=== PATIENT | male | born 1950 | race Caucasian/White ===

== ENCOUNTER 2016-07-27 22:09 | Emergency (ER) | payer MEDICARE, MEDICAID ==
[2016-07-28] MEDS ORDERED: PREDNISONE 20 MG TABLET PO ONE (00:48)
[2016-07-28] MEDS ORDERED: IPRATROPIUM/ALBUTEROL 0.5-2.5 MG/3 ML AMPUL NEB ONE (00:48)
--- NOTE | 2016-07-28 00:52 | ER Document Report ---
ED Respiratory Problem - General Chief Complaint: Chest Congestion Stated Complaint: COUGH Time seen by provider: 00:51 Mode of Arrival: Ambulatory Information source: Patient TRAVEL OUTSIDE OF THE [place] IN LAST 30 DAYS: No - HPI Patient complains to provider of: Cough, Short of breath Onset: This morning Duration: Worse/persistent Quality of pain: No pain Context: Hx COPD, Malignancy Short of Breath: Moderate Chest pain/discomfort: Tightness Cough: Productive Sputum amount: Small Sputum color: Yellow Sputum consistency: Mucoid At home treatment: Inhaled steroids Associated symptoms: Congestion, Cough, Short of breath Similar symptoms previously: Yes Recently seen / treated by doctor: No Notes: Patient is a 65-year-old male previous smoker with history of lung cancer, lung resection and COPD, who presents to the emergency room complaining of cough, cold and congestion that started earlier today, reports he is coughing up yellowish phlegm, denies any fever, positive sick contacts, not currently taking antibiotics or oral steroids - Related Data Allergies/Adverse Reactions: No Known Allergies Allergy (Verified 07/27/15 10:34) Past Medical History - General Information source: Patient - Social History Smoking Status: Former Smoker Family History: Reviewed & Not Pertinent Patient has suicidal ideation: No Patient has homicidal ideation: No - Past Medical History Cardiac Medical History: Reports: Hx Hypertension Denies: Hx Coronary Artery Disease, Hx Heart Attack Pulmonary Medical History: Reports: Hx Bronchitis, Hx COPD, Hx Pneumonia Denies: Hx Asthma Neurological Medical History: Denies: Hx Cerebrovascular Accident, Hx Seizures Renal/ Medical History: Denies: Hx Peritoneal Dialysis Malignancy Medical History: Reports Hx Lung Cancer, Reports Hx Prostate Cancer Musculoskeltal Medical History: Reports Hx Arthritis Past Surgical History: Denies: Hx Pacemaker - Immunizations Hx Diphtheria, Pertussis, Tetanus Vaccination: Yes Hx Pneumococcal Vaccination: 07/06/12 Review of Systems - Review of Systems Constitutional: No symptoms reported EENT: No symptoms reported Cardiovascular: No symptoms reported Respiratory: See HPI Gastrointestinal: No symptoms reported Genitourinary: No symptoms reported Male Genitourinary: No symptoms reported Musculoskeletal: No symptoms reported Skin: No symptoms reported Hematologic/Lymphatic: No symptoms reported Neurological/Psychological: No symptoms reported -: Yes All other systems reviewed and negative Physical Exam - Vital signs Vitals: Temp Pulse Resp BP Pulse Ox 97.5 F 68 18 116/65 98 07/27/16 22:34 07/27/16 22:34 07/27/16 22:34 07/27/16 22:34 07/27/16 22:34 Interpretation: Normal - General General appearance: Appears well, Alert - HEENT Head: Normocephalic, Atraumatic Eyes: Normal Pupils: PERRL - Respiratory Respiratory status: No respiratory distress Chest status: Nontender Breath sounds: Nonproductive cough, Rhonchi, Wheezing Chest palpation: Normal - Cardiovascular Rhythm: Regular Heart sounds: Normal auscultation Murmur: No - Abdominal Inspection: Normal Distension: No distension Bowel sounds: Normal Tenderness: Nontender Organomegaly: No organomegaly - Back Back: Normal, Nontender - Extremities General upper extremity: Normal inspection, Nontender, Normal color, Normal ROM , Normal temperature General lower extremity: Normal inspection, Nontender, Normal color, Normal ROM , Normal temperature, Normal weight bearing. No: Raúl's sign - Neurological Neuro grossly intact: Yes Cognition: Normal Orientation: AAOx4 Ricardo Coma Scale Eye Opening: Spontaneous Ricardo Coma Scale Verbal: Oriented [place] Coma Scale Motor: Obeys Commands Ricardo Coma Scale Total: 15 Speech: Normal Motor strength normal: LUE, RUE, LLE, RLE Sensory: Normal - Psychological Associated symptoms: Normal affect, Normal mood - Skin Skin Temperature: Warm Skin Moisture: Dry Skin Color: Normal Course - Re-evaluation Re-evalutation: 07/28/16 02:05 Patient reports feeling much better after breathing treatment, lungs are clear to auscultation, imaging findings were discussed with patient at bedside, symptoms consistent with acute bronchitis, given patient's history of being a former smoker and having lung cancer with resection and will place him on a short course of antibiotics, advise follow-up with a primary care provider or return if symptoms worsen, patient acknowledges understanding and agreement with this plan - Vital Signs Vital signs: Temp Pulse Resp BP Pulse Ox 97.5 F 68 18 116/65 98 07/27/16 22:34 07/27/16 22:34 07/27/16 22:34 07/27/16 22:34 07/27/16 22:34 - Diagnostic Test Radiology reviewed: Image reviewed, Reports reviewed Discharge - Discharge Clinical Impression: COPD exacerbation Acute bronchitis Qualifiers: Bronchitis organism: unspecified organism Qualified Code(s): J20.9 - Acute bronchitis, unspecified Condition: Stable Disposition: HOME, SELF-CARE Instructions: Chronic Obstructive Lung Disease ([facility]), Bronchitis ([facility]) Additional Instructions: Follow up with your primary care provider in one to 2 days. Return to the emergency room immediately if symptoms worsen or any additional concerns. Prescriptions: Azithromycin [Zithromax 250 mg Tablet] 250 mg PO ASDIR PRN #4 tablet PRN Reason: Prednisone 40 mg PO DAILY #8 tablet
[2016-07-28] MEDS ORDERED: AZITHROMYCIN 250 MG TABLET PO ONE (02:05)
[2016-07-28 02:26] VITALS: BP 125/71
== END 2016-07-28 02:25 | disposition home or self-care (01) ==
LOC: ER 22:09
DX: J44.0 Chronic obstructive pulmonary disease with (acute) lower respiratory infection (principal); J20.9 Acute bronchitis, unspecified; J44.1 Chronic obstructive pulmonary disease with (acute) exacerbation; R05 Cough; R06.02 Shortness of breath; I10 Essential (primary) hypertension; Z87.891 Personal history of nicotine dependence; Z85.118 Personal history of other malignant neoplasm of bronchus and lung; Z90.2 Acquired absence of lung [part of]; Z87.01 Personal history of pneumonia (recurrent)
CPT/HCPCS: 94640; 99283; 71020; A9270 ×3; J7512; J7620

== ENCOUNTER → 2016-10-20 | Outpatient (CLI) | payer MEDICARE, MEDICAID | LOC: WI 09:17 | PROVIDERS: ATTEND Internal Medicine Medical Oncology | DX: M81.0 Age-related osteoporosis without current pathological fracture (principal) | CPT/HCPCS: 77080 ==

== ENCOUNTER 2017-08-20 06:30 | Emergency (ER) | payer MEDICARE, MEDICAID ==
[2017-08-20] MEDS ORDERED: TETRACAINE HCL 0.5% OPH SOLN 2 ML OD ONE (06:41)
[2017-08-20] MEDS ORDERED: LORAZEPAM 0.5 MG TABLET PO ONE (06:48)
[2017-08-20] MEDS ORDERED: HYDROCODONE/ACETAMINOPHEN 5-325 MG TABLET PO ONE (06:48)
[2017-08-20] MEDS ORDERED: HYDROCODONE/ACETAMINOPHEN 5-325 MG (6 TAB/ER DISP) PO PRN (07:33)
[2017-08-20] MEDS ORDERED: POLYMYXIN B SULFATE/TMP OPH SOLN (10 ML/ER DISP) OD PRN (07:33)
--- NOTE | 2017-08-20 07:39 | ER Document Report ---
ED General - General Chief Complaint: Foreign Body in Eye Stated Complaint: EYE INJURY Time Seen by Provider: 08/20/17 06:41 TRAVEL OUTSIDE OF THE [place] IN LAST 30 DAYS: No - HPI Patient complains to provider of: Right eye foreign body Notes: Patient coming in for a possibility of a right eye foreign body. 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 Patient denies any visual disturbances. 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 Otherwise denies any contact use denies any other past medical history. Denies fevers chills nausea vomiting diarrhea. Resting company upon my evaluation. - Related Data Allergies/Adverse Reactions: No Known Allergies Allergy (Verified 07/27/15 10:34) Past Medical History - Social History Smoking Status: Current Every Day Smoker Family History: Reviewed & Not Pertinent Patient has suicidal ideation: No Patient has homicidal ideation: No - Past Medical History Cardiac Medical History: Reports: Hx Hypertension Denies: Hx Coronary Artery Disease, Hx Heart Attack Pulmonary Medical History: Reports: Hx Bronchitis, Hx COPD, Hx Pneumonia Denies: Hx Asthma Neurological Medical History: Denies: Hx Cerebrovascular Accident, Hx Seizures Renal/ Medical History: Denies: Hx Peritoneal Dialysis Malignancy Medical History: Reports Hx Lung Cancer, Reports Hx Prostate Cancer Musculoskeltal Medical History: Reports Hx Arthritis Past Surgical History: Denies: Hx Pacemaker - Immunizations Hx Diphtheria, Pertussis, Tetanus Vaccination: Yes Hx Pneumococcal Vaccination: 07/06/12 Review of Systems - Review of Systems Constitutional: No symptoms reported EENT: Other - Right eye injury Cardiovascular: No symptoms reported Respiratory: No symptoms reported Gastrointestinal: No symptoms reported Genitourinary: No symptoms reported Male Genitourinary: No symptoms reported Musculoskeletal: No symptoms reported Skin: No symptoms reported Hematologic/Lymphatic: No symptoms reported Neurological/Psychological: No symptoms reported -: Yes All other systems reviewed and negative Physical Exam - Vital signs Vitals: Temp Pulse Resp BP Pulse Ox 98 F 69 18 165/92 H 100 08/20/17 06:31 08/20/17 06:31 08/20/17 06:31 08/20/17 06:31 08/20/17 06:31 Interpretation: Normal - General General appearance: Appears well, Alert - HEENT Head: Normocephalic, Atraumatic Eyes: Normal Conjunctiva: Injected Cornea: Embedded foreign body Extraocular movements intact: Yes Eyelashes: Normal Pupils: PERRL Pharynx: Normal Neck: Normal - Respiratory Respiratory status: No respiratory distress Chest status: Nontender Breath sounds: Normal Chest palpation: Normal - Cardiovascular Rhythm: Regular Heart sounds: Normal auscultation Murmur: No - Abdominal Inspection: Normal Distension: No distension Bowel sounds: Normal Tenderness: Nontender Organomegaly: No organomegaly - Back Back: Normal, Nontender - Extremities General upper extremity: Normal inspection, Nontender, Normal color, Normal ROM , Normal temperature General lower extremity: Normal inspection, Nontender, Normal color, Normal ROM , Normal temperature, Normal weight bearing. No: Raúl's sign - Neurological Neuro grossly intact: Yes Cognition: Normal Orientation: AAOx4 [place] Coma Scale Eye Opening: Spontaneous Ricardo Coma Scale Verbal: Oriented [place] Coma Scale Motor: Obeys Commands Ricardo Coma Scale Total: 15 Speech: Normal Motor strength normal: LUE, RUE, LLE, RLE Sensory: Normal - Psychological Associated symptoms: Normal affect, Normal mood - Skin Skin Temperature: Warm Skin Moisture: Dry Skin Color: Normal Course - Re-evaluation Re-evalutation: 08/20/17 10:06 Patient with a foreign body in the right eye. This was confirmed with forcing staining and examination under the microscope. Patient was given a dose of tetracaine along with Ativan and Garrison. At which time using a 18-gauge needle I was able to remove the foreign body. The right eye was reexamined no Siedel sign no signs of any other foreign body. Patient had the remaining corneal abrasion. Patient was started on Polytrim. Patient was encouraged to follow- up with ophthalmology or optometry or return to ER symptoms worsen. Visual acuity otherwise normal. Patient discharged home. - Vital Signs Vital signs: Temp Pulse Resp BP Pulse Ox 97.6 F 64 18 149/86 H 98 08/20/17 07:46 08/20/17 07:46 08/20/17 07:46 08/20/17 07:46 08/20/17 07:46 Procedures - Eye Procedure Right Notes: 08/20/17 10:08 Foreign body at the 5 o'clock position of the iris. Patient was given a dose of tetracaine along with Ativan and Garrison. At which time using a 18-gauge needle I was able to remove the foreign body. The right eye was reexamined no Siedel sign no signs of any other foreign body. Discharge - Discharge Clinical Impression: Foreign body of right eye Qualifiers: Encounter type: initial encounter Qualified Code(s): T15.91XA - Foreign body on external eye, part unspecified, right eye, initial encounter Disposition: HOME, SELF-CARE Instructions: Corneal Abrasion ([facility]) Additional Instructions: Please use antibiotic drops as prescribed. 2 drops in your right eye every 4 hours for the next 7 days. If you experience eye pain please return to the ER immediately. He may take Tylenol Motrin for pain control he may also take the Garrison given to you here in the ER for severe pain. 1 tablet every [address] for [address] not drive with this medication. I would recommend following up with an eye doctor either an health program analyst or the electronic imager given to you. I recommend wearing sunglasses while outside is that this will cause her eyes to tear. 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 Referrals: OSIEL PEREZ, DO [ACTIVE STAFF] - Follow up as needed
[2017-08-20 07:49] VITALS: BP 149/86
== END 2017-08-20 07:47 | disposition home or self-care (01) ==
LOC: ER 06:30
DX: T15.81XA Foreign body in other and multiple parts of external eye, right eye, initial encounter (principal); X58.XXXA Exposure to other specified factors, initial encounter; I10 Essential (primary) hypertension; J44.9 Chronic obstructive pulmonary disease, unspecified; F17.200 Nicotine dependence, unspecified, uncomplicated; Z85.118 Personal history of other malignant neoplasm of bronchus and lung; Z85.46 Personal history of malignant neoplasm of prostate
CPT/HCPCS: 99283; J3490; A9270 ×3

== ENCOUNTER 2017-12-24 16:54 | Emergency (ER) | payer MEDICARE, MEDICAID ==
[2017-12-24 17:25] VITALS: BP 172/104
[2017-12-24 17:36] LABS: ALANINE AMINOTRANSFERASE 23 U/L (21-72); ALBUMIN 3.7 g/dL (3.5-5.0); ALKALINE PHOSPHATASE 95 U/L (38-126); ANION GAP 9 (5-19); ASPARTATE AMINO TRANSFERASE 17 U/L (17-59); BILIRUBIN,DIRECT 0.3 mg/dL (0.0-0.4); BILIRUBIN,TOTAL 0.4 mg/dL (0.2-1.3); BLOOD UREA NITROGEN 24 mg/dL (7-20); CALCIUM 9.6 mg/dL (8.4-10.2); CARBON DIOXIDE 28 mmol/L (22-30); CHLORIDE 105 mmol/L (98-107); GLUCOSE 94 mg/dL (75-110); POTASSIUM 4.6 mmol/L (3.6-5.0); SODIUM 141.9 mmol/L (137-145); TOTAL PROTEIN 6.5 g/dL (6.3-8.2)
[2017-12-24] MEDS ORDERED: OXYCODONE-ACETAMINOPHEN 5-325 MG TABLET PO ONE (17:40)
[2017-12-24] MEDS ORDERED: ONDANSETRON HCL INJ/PF 4 MG/2 ML SDV IV ONE (17:40)
[2017-12-24] MEDS ORDERED: ONDANSETRON 4 MG TAB.RAPDIS PO ONE (17:44)
[2017-12-24 17:50] LABS: HEMATOCRIT 41.5 % (37.9-51.0); HEMOGLOBIN 13.9 g/dL (13.5-17.0); MEAN CORPUSCULAR HEMOGLOBIN 29.5 pg (27.0-33.4); MEAN CORPUSCULAR HGB CONC 33.6 g/dL (32.0-36.0); MEAN CORPUSCULAR VOLUME 88 fl (80-97); PLATELET COUNT 247 10^3/uL (150-450); RED BLOOD COUNT 4.73 10^6/uL (4.35-5.55); RED CELL DISTRIBUTION WIDTH 13.9 % (11.5-14.0); WHITE BLOOD COUNT 11.4 10^3/uL (4.0-10.5)
--- NOTE | 2017-12-24 17:53 | ER Document Report ---
ED Headache - General Chief Complaint: Headache Stated Complaint: HEADACHE Time Seen by Provider: 12/24/17 17:38 Notes: Patient says he been having a severe headache since yesterday or the day before. 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 His headache started slightly then and worsened yesterday. It is located primarily in the frontal region, to the right of center. Patient has had headaches before, but never had a headache this bad is nauseated but has not vomited. No diarrhea. Has pain in the right abdomen for 2 days. Patient has not been sick recently and has not had any fevers. Feels dizzy and tired. Went to a local medical office and they called EMS who transported the patient here. Patient stopped smoking about 10 years ago. Does not drink alcohol. Does use methamphetamine once or twice a week, the most recently was yesterday. Patient has high blood pressure and GERD and has had prostate cancer and lung cancer. Says he sometimes forgets to take his medications. Takes Zoloft for depression. Appendectomy. Lobectomy on the left lung. TRAVEL OUTSIDE OF THE [place] IN LAST 30 DAYS: No - Related Data Allergies/Adverse Reactions: No Known Allergies Allergy (Verified 07/27/15 10:34) Past Medical History - Social History Smoking Status: Former Smoker Chew tobacco use (# tins/day): No Frequency of alcohol use: None Drug Abuse: Methamphetamine - Once or twice a week. Family History: Reviewed & Not Pertinent Patient has suicidal ideation: No Patient has homicidal ideation: No - Past Medical History Cardiac Medical History: Reports: Hx Hypertension Pulmonary Medical History: Reports: Hx Bronchitis, Hx COPD, Hx Pneumonia Denies: Hx Asthma Malignancy Medical History: Reports Hx Lung Cancer, Reports Hx Prostate Cancer Musculoskeltal Medical History: Reports Hx Arthritis Psychiatric Medical History: Reports: Hx Depression Past Surgical History: Reports: Hx Appendectomy - Immunizations Hx Diphtheria, Pertussis, Tetanus Vaccination: Yes Hx Pneumococcal Vaccination: 07/06/12 Review of Systems - Review of Systems Notes: REVIEW OF SYSTEMS: CONSTITUTIONAL : Denies fever. EENT: Denies eye, ear, nose or mouth or throat pain or other symptoms. CARDIOVASCULAR: Denies chest pain. RESPIRATORY: Denies cough, chest congestion, or shortness of breath. GASTROINTESTINAL: Says he has pain to the right side of the abdomen, not at McBurney's point. (History appendectomy). Nauseated but has not vomited. No diarrhea. GENITOURINARY: Denies difficulty or painful urinating, urinary frequency, blood in urine. MUSCULOSKELETAL: Denies back or neck pain. Denies joint pain or swelling. SKIN: Denies rash or skin lesions. NEUROLOGICAL: Denies LOC or altered mental status. See HPI regarding headache. Denies sensory loss or motor deficits. ALL OTHER SYSTEMS REVIEWED AND NEGATIVE. Physical Exam - Vital signs Vitals: Resp Pulse Ox 17 96 12/24/17 17:04 12/24/17 17:04 Interpretation: Normal, Hypertensive - Mild - Notes Notes: PHYSICAL EXAMINATION: GENERAL: Well-appearing, appears to be in pain. HEAD: Atraumatic, normocephalic. EYES: Pupils equal round and reactive to light, extraocular movements intact. ENT: oropharynx clear without exudates. Moist mucous membranes. NECK: Normal range of motion, supple. No nuchal rigidity. LUNGS: Breath sounds clear and equal bilaterally. HEART: Regular rate and rhythm without murmurs. ABDOMEN: Soft, nontender. No guarding or rebound. No masses. No specific tenderness in the right side of the abdomen. BACK: No tenderness throughout entire back. EXTREMITIES: Normal range of motion without pain. NEUROLOGICAL: Normal speech, normal gait. Normal sensory, motor, and reflex exams. Awake, alert, and oriented x3. PSYCH: Normal mood, normal affect. SKIN: Warm, dry, no rashes. Course - Re-evaluation Re-evalutation: 12/24/17 18:38 Patient's workup is essentially normal. Drug screen positive for amphetamines. CT scan essentially normal. Patient's neck is supple. Neurologically intact. Plan to discharge him home with something for nausea and something for his headache (Ultram). 12/24/17 18:50 Further discussion with the patient: He says that this batch of methamphetamine did not taste right. He is not sure what they may have put in it, but he was having his headache before he use the methamphetamine. Patient has no fever, his white count is 11,400, but only 50% neutrophils and no bands. He does not have any stiffness to the neck and moves his head around frequently and vigorously. Nothing about the patient's examination or findings in his workup suggests the need for a lumbar puncture, in my opinion, at this time. - Vital Signs Vital signs: Temp Pulse Resp BP Pulse Ox 97.7 F 14 172/104 H 96 12/24/17 17:23 12/24/17 17:07 12/24/17 17:07 12/24/17 17:07 - Laboratory Result Diagrams: 12/24/17 17:09 12/24/17 17:09 Laboratory results interpreted by me: 12/24/17 12/24/17 12/24/17 17:09 17:09 17:15 WBC 11.4 H Eosinophils % (Manual) 24 H Absolute Eos (Manual) 2.7 H BUN 24 H Urine Urobilinogen 2.0 H Discharge - Discharge Clinical Impression: Headache, Methamphetamine abuse, Hypertension Condition: Stable Disposition: HOME, SELF-CARE Additional Instructions: HEADACHE: The physician does not feel that the headache you are experiencing has a serious underlying cause. Most headaches are due to emotional stress, with resultant muscle tension (tension headache). Occasionally, headaches are secondary to changes in the blood vessels of the scalp (vascular headache and migraine headache). Sometimes, a headache is the first symptom of another developing illness, such as a viral infection. You have no evidence of stroke, bleeding, meningitis, or other serious cause of your headache. The treatment of headaches varies with the severity and cause of the pain. Not all headaches need pain shots. In fact, there is evidence that using narcotics for headaches may make them worse in the long run. The physician will determine the therapy that's in your best interest. If you develop a fever, if the headache is different from any you've previously experienced, or if the headache progressively worsens, then call your physician at once or go to the emergency room. NORMAL EXAM AND WORKUP: At this time, your examination and workup show no significant abnormality. No significant abnormal physical findings were noted. All laboratory, EKG, and imaging (x-ray, CT scans, ultrasound) studies that were ordered show no significant abnormality. Although your examination and all studies that were ordered showed no significant abnormal finding, there are no examinations and no studies that are 100% accurate. There is always the possibility that some abnormality could exist and not be detected with physical examination or within the limits and capabilities of laboratory and other studies. You should return or follow up as you were instructed on your visit today for further evaluation if your symptoms do not resolve. AMPHETAMINE / METHAMPHETAMINE ABUSE: Amphetamines are addicting stimulants. Amphetamines overstimulate the nervous system and give a false feeling of power and mastery. These drugs may be obtained as prescription pills for weight loss, narcolepsy, or attention- deficit disorder. More often they're bought as an illegal street drug, methamphetamine (crank, crystal, speed). Using amphetamines repeatedly can lead to serious medical problems including malnutrition, severe depression, and paranoia. It can take increasing amounts to feel good. Eventually, there will be a "burn out." When you go off amphetamines there is a period of depression that may last for weeks or even months. High doses of amphetamines can cause seizures, confusion, hallucinations, delusions, high blood pressure, muscle damage, heart damage, or sudden . Many times these deadly complications occur even with "normal" doses. Injection of amphetamines is risky for developing abscesses, endocarditis ( heart infection), pneumonia, and AIDS. Withdrawal from amphetamines often causes anxiety, depression, and drug cravings. Some users become paranoid and psychotic. There may be cramps, nausea , and vomiting. Many treatment programs are available, but you must make the decision to quit. Medication can be prescribed to control the symptoms of amphetamine toxicity (beta blockers or benzodiazepines). Withdrawal symptoms may require tranquilizers. ANTINAUSEA MEDICATION: You have been given a medication to suppress nausea and vomiting. This type of medication can be given as a shot, pill, or suppository. It will usually last for many hours. Pills and shots usually last six to eight hours, suppositories last about 12 hours. For the typical illness, only one or two doses of the medication may be necessary. Mild lightheadedness may occur. This type of medicine can cause drowsiness. Do not drive or operate dangerous machinery while under its influence. Do not mix with alcohol. See your doctor at once if you have muscle spasms or tightness, or uncontrollable motions (particularly of the neck, mouth, or jaw). Persistent vomiting or severe lightheadedness should also be evaluated by the physician. Ultram Ultram is an excellent drug for pain relief. It is not a narcotic, but it works in a similar way. Ultram can take up to two hours for full effect. Although not addicting, Ultram is best avoided in patients with a history of drug abuse. Ultram should not be used with alcohol, sleeping pills, or narcotics. If you're prone to seizures, Ultram can make you more likely to have a seizure. Ultram can be hazardous when combined with MAO-inhibitor antidepressants (such as Nardil or Parnate). Be sure your doctor is aware of all medicines you are taking. Persons with severe liver or kidney disease should increase the time between doses of Ultram. Discuss this with your doctor if you're uncertain. Side effects of Ultram can include dizziness, nausea, constipation, sleepiness, and itching. (These side effects are also seen with narcotic pain medicines.) Please call your doctor if you have other disturbing effects. FOLLOW-UP CARE: If you have been referred to a physician for follow-up care, call the physician s office for an appointment as you were instructed or within the next two days. If you experience worsening or a significant change in your symptoms, notify the physician immediately or return to the Emergency Department at any time for re-evaluation. Return for reevaluation if you develop new or worsening symptoms. Take your blood pressure medications as prescribed. Avoid using amphetamines and in particular methamphetamine. Prescriptions: Ondansetron [Zofran Odt 4 mg Tablet] 1 - 2 tab PO Q4H PRN #8 tab.rapdis PRN Reason: For Nausea/Vomiting Tramadol HCl [Ultram 50 mg Tablet] 50 mg PO ASDIR PRN #10 tablet PRN Reason:
[2017-12-24 17:54] LABS: APPEARANCE,URINE CLEAR; BILIRUBIN,URINE NEGATIVE (NEGATIVE); COLOR,URINE YELLOW; GLUCOSE, URINE NEGATIVE (NEGATIVE); KETONES,URINE NEGATIVE (NEGATIVE); LEUKOCYTE ESTERASE,URINE NEGATIVE (NEGATIVE); NITRITE,URINE NEGATIVE (NEGATIVE); PROTEIN,URINE NEGATIVE (NEGATIVE); URINE SPECIFIC GRAVITY 1.027
[2017-12-24 18:12] LABS: URINE BARBITURATES SCREEN NEGATIVE; URINE BENZODIAZEPINES SCREEN NEGATIVE; URINE COCAINE SCREEN NEGATIVE; URINE MARIJUANA (THC) SCREEN NEGATIVE; URINE METHADONE SCREEN NEGATIVE; URINE PHENCYCLIDINE SCREEN NEGATIVE
[2017-12-24 18:18] LABS: ABSOLUTE LYMPHOCYTES# (MANUAL) 2.3 10^3/uL (0.5-4.7); ABSOLUTE MONOCYTES # (MANUAL) 0.6 10^3/uL (0.1-1.4); ABSOLUTE NEUTROPHILS# (MANUAL) 5.7 10^3/uL (1.7-8.2); BASOPHILS % (MANUAL) 1 % (0-2); EOSINOPHILS % (MANUAL) 24 % (0-6); LYMPHOCYTES % (MANUAL) 20 % (13-45); MONOCYTES % (MANUAL) 5 % (3-13); SEGMENTED NEUTROPHILS % (MAN) 50 % (42-78); TOTAL CELLS COUNTED 100
--- NOTE | 2017-12-24 18:18 | RADIOLOGY REPORT (SQ) ---
EXAM DESCRIPTION: CT HEAD WITHOUT COMPLETED DATE/TIME: 12/24/2017 6:02 pm REASON FOR STUDY: Headache COMPARISON: 08/31/2007 TECHNIQUE: Axial images acquired through the brain without intravenous contrast. Images reviewed wi th bone, brain and subdural windows. Additional sagittal and coronal reconstructions were generated. Images stored on PACS. All CT scanners at this facility use dose modulation, iterative reconstruction, and/or weight based d osing when appropriate to reduce radiation dose to as low as reasonably achievable (ALARA). [facility]: Dose Right [facility]: CareDose [facility]: Dose Right [facility]: Teradose 4D [facility]: Smart Raise5 RADIATION DOSE: CT Rad equipment meets quality standard of care and radiation dose reduction techniq ues were employed. CTDIvol: 48.6 mGy. DLP: 953 mGy-cm. mGy. LIMITATIONS: None. FINDINGS: VENTRICLES: Normal size and contour. CEREBRUM: No masses. No hemorrhage. No midline shift. No evidence for acute infarction. Small area s of low density in the white matter most likely chronic small vessel ischemic changes. CEREBELLUM: No masses. No hemorrhage. No alteration of density. No evidence for acute infarction. EXTRAAXIAL SPACES: No fluid collections. No masses. ORBITS AND GLOBE: No intra- or extraconal masses. Normal contour of globe without masses. CALVARIUM: No fracture. PARANASAL SINUSES: No fluid or mucosal thickening. SOFT TISSUES: No mass or hematoma. OTHER: No other significant finding. IMPRESSION: MILD CHRONIC MICROVASCULAR ISCHEMIA. NO ACUTE IMAGING FINDINGS IN THE BRAIN. EVIDENCE OF ACUTE STROKE: NO. COMMENT: Quality ID # [id number]: Final reports with documentation of one or more dose reduction techniques (e.g., Automated exposure control, adjustment of the mA and/or kV according to patient size, use of iterative reconstruction technique) TECHNICAL DOCUMENTATION: JOB ID: [id number] [employer]- All Rights Reserved Reading location - IP/workstation name: [email or web address]
[2017-12-24 18:19] LABS: PLATELET COMMENT ADEQUATE
[2017-12-24 18:20] LABS: POLYCHROMASIA SLIGHT
--- NOTE | 2017-12-26 09:57 | EKG REPORT ---
SEVERITY:- ABNORMAL ECG - SINUS RHYTHM LVH WITH SECONDARY REPOLARIZATION ABNORMALITY : Confirmed by: Nahum Lopez 26-Dec-2017 09:57:07
== END 2017-12-24 19:21 | disposition home or self-care (01) ==
LOC: ER 16:54
DX: R51 Headache (principal); F15.10 Other stimulant abuse, uncomplicated; I10 Essential (primary) hypertension; R11.0 Nausea; R10.9 Unspecified abdominal pain; R42 Dizziness and giddiness; R53.83 Other fatigue; Z87.891 Personal history of nicotine dependence; Z79.899 Other long term (current) drug therapy; K21.9 Gastro-esophageal reflux disease without esophagitis; J44.9 Chronic obstructive pulmonary disease, unspecified; Z85.46 Personal history of malignant neoplasm of prostate; Z85.118 Personal history of other malignant neoplasm of bronchus and lung
CPT/HCPCS: 93005; 99285; 36415; 80307 ×2; 85025; 80053; 81001; 70450; 93010; A9270 ×2; S0119

== ENCOUNTER 2018-02-05 10:43 | Emergency (ER) | payer MEDICARE, MEDICAID ==
[2018-02-05] MEDS ORDERED: FENTANYL CITRATE INJ/PF 100 MCG/2 ML AMPUL IV ONE (11:00)
[2018-02-05] MEDS ORDERED: ONDANSETRON HCL INJ/PF 4 MG/2 ML SDV IV ONE (11:00)
--- NOTE | 2018-02-05 11:02 | ER Document Report ---
ED Medical Screen (RME) - General Chief Complaint: Flank Pain Stated Complaint: FLANK PAIN Time Seen by Provider: 02/05/18 10:57 Notes: 67-year-old male history of kidney stones complaining of right flank pain and right lower quadrant pain. States it started about 3 days ago. Pain is getting worse. Nothing seems to make it better or worse. Positive for vomiting as well as nausea. I have greeted and performed a rapid initial assessment of this patient. A comprehensive ED assessment and evaluation of the patient, analysis of test results and completion of the medical decision making process will be conducted by additional ED providers. TRAVEL OUTSIDE OF THE [place] IN LAST 30 DAYS: No - Related Data Allergies/Adverse Reactions: No Known Allergies Allergy (Verified 02/05/18 10:46) Past Medical History - Past Medical History Cardiac Medical History: Reports: Hx Hypertension Denies: Hx Coronary Artery Disease, Hx Heart Attack Pulmonary Medical History: Reports: Hx Bronchitis, Hx COPD, Hx Pneumonia Denies: Hx Asthma Neurological Medical History: Denies: Hx Cerebrovascular Accident, Hx Seizures Renal/ Medical History: Denies: Hx Peritoneal Dialysis Malignancy Medical History: Reports Hx Lung Cancer, Reports Hx Prostate Cancer Musculoskeltal Medical History: Reports Hx Arthritis Psychiatric Medical History: Reports: Hx Depression Past Surgical History: Reports: Hx Appendectomy. Denies: Hx Pacemaker - Immunizations Hx Diphtheria, Pertussis, Tetanus Vaccination: Yes Review of Systems - Review of Systems Notes: Review of systems are positive for: Right flank pain, nausea, vomiting, right lower quadrant abdominal pain. Denies any chest pain or shortness of breath at this time. Physical Exam - Vital signs Vitals: Temp Pulse Resp BP Pulse Ox 97.6 F 58 L 18 184/80 H 96 02/05/18 10:51 02/05/18 10:51 02/05/18 10:51 02/05/18 10:51 02/05/18 10:51 Interpretation: Normal - General General appearance: Alert In distress: Moderate - Abdominal Inspection: Normal Distension: No distension Bowel sounds: Normal Tenderness: Tender - The right lower quadrant. Organomegaly: No organomegaly - Back Back: Normal, CVA tenderness Course - Vital Signs Vital signs: Temp Pulse Resp BP Pulse Ox 97.6 F 58 L 18 184/80 H 96 02/05/18 10:51 02/05/18 10:51 02/05/18 10:51 02/05/18 10:51 02/05/18 10:51 Doctor's Discharge - Discharge Referrals: MARIAA IGNACIO PA-C [Primary Care Provider] - Follow up as needed
[2018-02-05 11:58] LABS: ABSOLUTE EOSINOPHILS # (AUTO) 1.9 10^3/uL (0.0-0.6); ABSOLUTE LYMPHOCYTES (AUTO) 1.6 10^3/uL (0.5-4.7); ABSOLUTE MONOCYTES (AUTO) 0.5 10^3/uL (0.1-1.4); BASOPHILS % (AUTO) 0.4 % (0-2); EOSINOPHILS % (AUTO) 18.9 % (0-6); HEMATOCRIT 40.1 % (37.9-51.0); HEMOGLOBIN 13.5 g/dL (13.5-17.0); LYMPHOCYTES % (AUTO) 15.7 % (13-45); MEAN CORPUSCULAR HEMOGLOBIN 29.4 pg (27.0-33.4); MEAN CORPUSCULAR HGB CONC 33.7 g/dL (32.0-36.0); MEAN CORPUSCULAR VOLUME 87 fl (80-97); PLATELET COUNT 222 10^3/uL (150-450); RED CELL DISTRIBUTION WIDTH 14.1 % (11.5-14.0); TOTAL CELLS COUNTED % (AUTO) 100 %
[2018-02-05 12:21] LABS: ALANINE AMINOTRANSFERASE 25 U/L (21-72); ALBUMIN 3.9 g/dL (3.5-5.0); ALKALINE PHOSPHATASE 102 U/L (38-126); ANION GAP 15 (5-19); ASPARTATE AMINO TRANSFERASE 25 U/L (17-59); BILIRUBIN,DIRECT 0.2 mg/dL (0.0-0.4); BILIRUBIN,TOTAL 0.5 mg/dL (0.2-1.3); BLOOD UREA NITROGEN 18 mg/dL (7-20); CALCIUM 9.6 mg/dL (8.4-10.2); CARBON DIOXIDE 24 mmol/L (22-30); CHLORIDE 103 mmol/L (98-107); GLUCOSE 120 mg/dL (75-110); POTASSIUM 4.2 mmol/L (3.6-5.0); SODIUM 141.6 mmol/L (137-145); TOTAL PROTEIN 6.9 g/dL (6.3-8.2)
[2018-02-05] MEDS ORDERED: KETOROLAC TROMETHAMINE INJ/PF 30 MG/1 ML SDV IV ONE (12:46)
--- NOTE | 2018-02-05 12:49 | RADIOLOGY REPORT (SQ) ---
EXAM DESCRIPTION: CT ABD/PELVIS NO ORAL OR IV COMPLETED DATE/TIME: 02/05/2018 12:13 pm REASON FOR STUDY: right flank pain COMPARISON: None. TECHNIQUE: CT scan of the abdomen and pelvis performed without intravenous or oral contrast. Images reviewed with lung, soft tissue, and bone windows. Reconstructed coronal and sagittal MPR images revi ewed. All images stored on PACS. All CT scanners at this facility use dose modulation, iterative reconstruction, and/or weight based d osing when appropriate to reduce radiation dose to as low as reasonably achievable (ALARA). [facility]: Dose Right [facility]: CareDose [facility]: Dose Right [facility]: Teradose 4D [facility]: Smart Quantitative Medicine RADIATION DOSE: CT Rad equipment meets quality standard of care and radiation dose reduction techniq ues were employed. CTDIvol: 5.3 mGy. DLP: 270 mGy-cm.mGy. LIMITATIONS: None. FINDINGS: LOWER CHEST: No significant findings. No nodules or infiltrates. NON-CONTRASTED LIVER, SPLEEN, ADRENALS: Evaluation limited by lack of IV contrast. No identified sign ificant masses. PANCREAS: No masses. No peripancreatic inflammatory changes. GALLBLADDER: No identified stones by CT criteria. No inflammatory changes to suggest cholecystitis. RIGHT KIDNEY AND URETER: Mild right hydronephrosis. Intrarenal calculus. 2 mm calculus at the right UVJ. LEFT KIDNEY AND URETER: No suspicious masses. Assessment limited by lack of IV contrast. No signifi cant calcifications. No hydronephrosis or hydroureter. AORTA AND RETROPERITONEUM: No aneurysm. No retroperitoneal masses or adenopathy. BOWEL AND PERITONEAL CAVITY: No obvious bowel masses. There is mild mesenteric edema. APPENDIX: Surgically absent. PELVIS, BLADDER, AND ABDOMINAL WALL:No abnormal masses. No free fluid. Bladder normal. BONES: No significant findings. OTHER: No other significant finding. IMPRESSION: 1. Mild right hydronephrosis secondary to 2 mm UVJ calculus. 2. Mild mesenteric edema. COMMENT: Quality ID # [id number]: Final reports with documentation of one or more dose reduction techniques (e.g., Automated exposure control, adjustment of the mA and/or kV according to patient size, use of iterative reconstruction technique) TECHNICAL DOCUMENTATION: JOB ID: [id number] [employer]- All Rights Reserved Reading location - IP/workstation name: [email or web address]
[2018-02-05] MEDS ORDERED: METOCLOPRAMIDE HCL INJ/PF 10 MG/2 ML SDV IV ONE (13:08)
[2018-02-05] MEDS ORDERED: MORPHINE SULFATE 10 MG/ML INJ IV ONE (13:08)
--- NOTE | 2018-02-05 13:11 | ER Document Report ---
ED General - General Chief Complaint: Flank Pain Stated Complaint: FLANK PAIN Time Seen by Provider: 02/05/18 10:57 TRAVEL OUTSIDE OF THE [place] IN LAST 30 DAYS: No - HPI Notes: Patient is a 67-year-old male with a history of hypertension, COPD, previous kidney stones who presents to the ED complaining of right flank pain 3 days that radiates down into his groin. He has had n/v associated with this pain. His pain is intermittent and comes in waves. Patient states that this mimics previous kidney stone pain. Patient states that he is eating and drinking without any difficulties patient has noticed some blood in his urine. He is having normal bowel movements. He has tried [id number]-[id number] meds with minimal relief. He has not had any other recent illness. No other concerns or complaints. Denies any injury. Denies any headache, fever, URI, sore throat, chest pain, palpitations, syncope, cough, shortness of breath, wheeze, dyspnea, diarrhea, urinary retention, dysuria, loss of control of bowel or bladder, numbness/tingling, saddle anesthesia, muscle paralysis/weakness, or rash. - Related Data Allergies/Adverse Reactions: No Known Allergies Allergy (Verified 02/05/18 10:46) Past Medical History - Social History Smoking Status: Former Smoker Chew tobacco use (# tins/day): No Drug Abuse: Methamphetamine Family History: Reviewed & Not Pertinent Patient has suicidal ideation: No Patient has homicidal ideation: No - Past Medical History Cardiac Medical History: Reports: Hx Hypertension Denies: Hx Coronary Artery Disease, Hx Heart Attack Pulmonary Medical History: Reports: Hx Bronchitis, Hx COPD, Hx Pneumonia Denies: Hx Asthma Neurological Medical History: Denies: Hx Cerebrovascular Accident, Hx Seizures Renal/ Medical History: Denies: Hx Peritoneal Dialysis Malignancy Medical History: Reports Hx Lung Cancer, Reports Hx Prostate Cancer Musculoskeletal Medical History: Reports Hx Arthritis Psychiatric Medical History: Reports: Hx Depression Past Surgical History: Reports: Hx Appendectomy. Denies: Hx Pacemaker - Immunizations Hx Diphtheria, Pertussis, Tetanus Vaccination: Yes Hx Pneumococcal Vaccination: 07/06/12 Review of Systems - Review of Systems -: Yes All other systems reviewed and negative Physical Exam - Vital signs Vitals: Temp Pulse Resp BP Pulse Ox 97.6 F 58 L 18 184/80 H 96 02/05/18 10:51 02/05/18 10:51 02/05/18 10:51 02/05/18 10:51 02/05/18 10:51 - Notes Notes: PHYSICAL EXAMINATION: GENERAL: Well-appearing, well-nourished and in no acute distress. Chest: + reproducible tenderness to palpation of the rt pectoral area and reproducible with arm extension/abduction. LUNGS: Breath sounds clear to auscultation bilaterally and equal. No wheezes rales or rhonchi. HEART: Regular rate and rhythm without murmurs, rubs, gallops. ABDOMEN: Soft, nondistended abdomen. No guarding, no rebound. No masses appreciated. Normal bowel sounds present. + rt CVA tenderness. + mild generalized tenderness with focus on the rt flank. Musculoskeletal: FROM to passive/active. Strength 5+/5. Back: FROM. Strength 5+/5. Non-tender to midline. Extremities: No cyanosis, clubbing, or edema b/l. Peripheral pulses 2+. Capillary refill less than 3 seconds. NEUROLOGICAL: Normal speech, normal gait. PSYCH: Normal mood, normal affect. SKIN: Warm, Dry, normal turgor, no rashes or lesions noted. Course - Re-evaluation Re-evalutation: 02/05/18 15:15 Patient is an afebrile, well-hydrated, 67-year-old male who presents to the ED with a 2 mm right ureteral stone. Vitals are acceptable without any significant tachycardia, tachypnea, or hypoxia. PE is otherwise unremarkable. CBC, CMP unremarkable for acute pathology, but does show CKD which she has had in the past. UA unremarkable without signs of infection. See CT scan result. Patient is tolerating p.o. without difficulties and is nontoxic-appearing. He has received nausea medication as well as pain medication in the ED. He also received fluids. No other labs or imaging warranted at this time based on H&P. Low suspicion/risk for urosepsis, acute appendicitis, bowel obstruction, acute cholecystitis, perforated diverticulitis, incarcerated hernia, pancreatitis, perforated ulcer, peritonitis, sepsis, testicular torsion, or other systemic emergent condition at this time. Patient is aware that his condition can change from initial presentation and he needs to monitor symptoms closely and seek medical attention if any acute changes. Rx for zofran and morphine IR. He is already on flomax. Conservative measures otherwise for symptoms. Recheck with PCM in 2-3 days. Consider consult with a Urologist. Return to the ED with any worsening/concerning symptoms otherwise as reviewed in discharge. Patient is in agreement. - Vital Signs Vital signs: Temp Pulse Resp BP Pulse Ox 97.2 F 55 L 16 172/68 H 100 02/05/18 13:06 02/05/18 13:06 02/05/18 13:06 02/05/18 13:06 02/05/18 13:06 - Laboratory Result Diagrams: 02/05/18 11:10 02/05/18 11:10 Laboratory results interpreted by me: 02/05/18 02/05/18 11:10 11:10 RDW 14.1 H Eosinophils % 18.9 H Absolute Eosinophils 1.9 H Creatinine 1.46 H Est GFR ( Amer) 58 L Est GFR (Non-Af Amer) 48 L Glucose 120 H Discharge - Discharge Clinical Impression: Right ureteral stone, Right flank pain Condition: Stable Disposition: HOME, SELF-CARE Instructions: Antinausea Medication ([facility]), Kidney Stone ([facility]), Oral Narcotic Medication ([facility]) Additional Instructions: Push fluids (i.e. water, cranberry juice) Proper hygenic technique Keep the skin clean Tylenol/ibuprofen as needed Take medications as directed F/u with your PCM in 2-3 days for a recheck Consider consult with a Urologist for ongoing/worsening symptoms. Return to the ED with any worsening symptoms and/or development of fever, headache, chest pain, palpitations, syncope, shortness of breath, trouble breathing, abdominal pain, n/v/d, blood in stool/urine, loss of control of bowel /bladder, urinary retention, or other worsening symptoms that are concerning to you. Prescriptions: Morphine Sulfate [Morphine Ir 15 Mg Tablet] 15 mg PO TID #15 tablet Ondansetron [Zofran Odt 4 mg Tablet] 1 - 2 tab PO Q4H PRN #15 tab.rapdis PRN Reason: For Nausea/Vomiting Forms: Elevated Blood Pressure Referrals: MARIAA IGNACIO PA-C [Primary Care Provider] - 02/08/18 JOSE OBANDO [NO LOCAL MD] - Follow up as needed
[2018-02-05] MEDS ORDERED: NORMAL SALINE 1000 ML 1,000 ML IV ONE ×2 (13:13→13:15)
[2018-02-05 14:41] LABS: APPEARANCE,URINE CLEAR; BILIRUBIN,URINE NEGATIVE (NEGATIVE); COLOR,URINE YELLOW; GLUCOSE, URINE NEGATIVE (NEGATIVE); KETONES,URINE NEGATIVE (NEGATIVE); LEUKOCYTE ESTERASE,URINE NEGATIVE (NEGATIVE); NITRITE,URINE NEGATIVE (NEGATIVE); PROTEIN,URINE NEGATIVE (NEGATIVE); URINE SPECIFIC GRAVITY 1.023; UROBILINOGEN,URINE NEGATIVE mg/dL (<2.0)
[2018-02-05 15:29] VITALS: BP 160/80
== END 2018-02-05 15:30 | disposition home or self-care (01) ==
LOC: ER 10:43
DX: N20.1 Calculus of ureter (principal); R10.9 Unspecified abdominal pain; I10 Essential (primary) hypertension; J44.9 Chronic obstructive pulmonary disease, unspecified; Z87.442 Personal history of urinary calculi
CPT/HCPCS: 99284; 96361; 96374; 96375; 36415; 85025; 80053; 81001; 74176; J3010; J1885; J2765; J2270; J2405; J7030

== ENCOUNTER 2018-06-02 12:30 | Emergency (ER) | payer MEDICARE, MEDICAID ==
--- NOTE | 2018-06-02 13:16 | ER Document Report ---
ED Medical Screen (RME) - General Chief Complaint: Abnormal Lab Results Stated Complaint: ABNORMAL LABS Time Seen by Provider: 06/02/18 13:12 Notes: 67 years old male with a history of lung cancer was referred here because of elevated white blood cell count at the primary care physician office. Patient denies any symptoms As a history of lung cancer with lung resection TRAVEL OUTSIDE OF THE [place] IN LAST 30 DAYS: No - Related Data Allergies/Adverse Reactions: No Known Allergies Allergy (Verified 06/02/18 12:33) Past Medical History - Past Medical History Cardiac Medical History: Reports: Hx Hypertension Denies: Hx Coronary Artery Disease, Hx Heart Attack Pulmonary Medical History: Reports: Hx Bronchitis, Hx COPD, Hx Pneumonia Denies: Hx Asthma Neurological Medical History: Denies: Hx Cerebrovascular Accident, Hx Seizures Renal/ Medical History: Denies: Hx Peritoneal Dialysis Malignancy Medical History: Reports Hx Lung Cancer, Reports Hx Prostate Cancer Musculoskeltal Medical History: Reports Hx Arthritis Psychiatric Medical History: Reports: Hx Depression Past Surgical History: Reports: Hx Appendectomy. Denies: Hx Pacemaker - Immunizations Hx Diphtheria, Pertussis, Tetanus Vaccination: Yes Physical Exam - Vital signs Vitals: Temp Pulse Resp BP Pulse Ox 97.5 F 72 14 185/99 H 96 06/02/18 12:46 06/02/18 12:46 06/02/18 12:46 06/02/18 12:46 06/02/18 12:46 Course - Vital Signs Vital signs: Temp Pulse Resp BP Pulse Ox 97.5 F 72 14 185/99 H 96 06/02/18 12:46 06/02/18 12:46 06/02/18 12:46 06/02/18 12:46 06/02/18 12:46 Doctor's Discharge - Discharge Referrals: MARIAA IGNACIO PA-C [Primary Care Provider] - Follow up as needed
--- NOTE | 2018-06-02 14:05 | RADIOLOGY REPORT (SQ) ---
EXAM DESCRIPTION: CHEST 2 VIEWS COMPLETED DATE/TIME: 06/02/2018 1:50 pm REASON FOR STUDY: Lung cancer COMPARISON: 07/28/2016 EXAM PARAMETERS: NUMBER OF VIEWS: two views TECHNIQUE: Digital Frontal and Lateral radiographic views of the chest acquired. RADIATION DOSE: NA LIMITATIONS: none FINDINGS: LUNGS AND PLEURA: Stable slight linear subsegmental parenchymal densities at the left renato g base may represent atelectasis or scarring. Interval resolution of the small left pleural effusion . Slight blunting of the right costophrenic angle, stable may represent pleural reaction versus very sm all pleural effusion. No pneumothorax or pleural effusion. MEDIASTINUM AND HILAR STRUCTURES: No masses or contour abnormalities. HEART AND VASCULAR STRUCTURES: Heart normal size. No evidence for failure. BONES: No acute findings. HARDWARE: None in the chest. OTHER: No other significant finding. IMPRESSION: 1. Interval resolution of the small left pleural effusion since the prior examination d ated 07/28/2016. 2. Otherwise, stable appearance to the chest. No acute findings. TECHNICAL DOCUMENTATION: JOB ID: [id number] [employer]- All Rights Reserved Reading location - IP/workstation name: [email or web address]
[2018-06-02 14:17] LABS: ABSOLUTE EOSINOPHILS # (AUTO) 1.1 10^3/uL (0.0-0.6); ABSOLUTE LYMPHOCYTES (AUTO) 1.6 10^3/uL (0.5-4.7); ABSOLUTE MONOCYTES (AUTO) 0.5 10^3/uL (0.1-1.4); ABSOLUTE NEUT (AUTO) 5.1 10^3/uL (1.7-8.2); BASOPHILS % (AUTO) 0.4 % (0-2); HEMATOCRIT 42.3 % (37.9-51.0); HEMOGLOBIN 14.4 g/dL (13.5-17.0); MEAN CORPUSCULAR HEMOGLOBIN 29.7 pg (27.0-33.4); MEAN CORPUSCULAR HGB CONC 34.1 g/dL (32.0-36.0); MEAN CORPUSCULAR VOLUME 87 fl (80-97); MONOCYTES % (AUTO) 6.3 % (3-13); PLATELET COUNT 208 10^3/uL (150-450); RED BLOOD COUNT 4.86 10^6/uL (4.35-5.55); RED CELL DISTRIBUTION WIDTH 14.9 % (11.5-14.0); SEGMENTED NEUTROPHILS % (AUTO) 61.3 % (42-78); TOTAL CELLS COUNTED % (AUTO) 100 %; WHITE BLOOD COUNT 8.4 10^3/uL (4.0-10.5)
--- NOTE | 2018-06-02 14:22 | ER Document Report ---
ED General - General Chief Complaint: Abnormal Lab Results Stated Complaint: ABNORMAL LABS Time Seen by Provider: 06/02/18 13:12 TRAVEL OUTSIDE OF THE [place] IN LAST 30 DAYS: No - HPI Notes: Patient presents from primary care physician's office for complaint of leukocytosis. Patient states that he has a history of prostate cancer and lung cancer which are both in remission. He is not currently receiving chemotherapy or radiation. He has been having constipation for the last 7 days and arranged an appointment with his primary care provider. He states yesterday he had routine blood work performed and today he saw his PCP. During his appointment he was told he had a WBC count that was 3 times higher than normal and was told to come to the emergency room. He denies any other symptoms other than the constipation. He denies any nausea, vomiting, fevers, chills, abdominal pain, shortness of breath and chest pain. He has not had any antibiotics or diarrhea. He is not currently on any steroids. Past medical history: lung cancer, prostate cancer Past surgical history: Reviewed in chart Social history: Tobacco use. Denies drugs and alcohol - Related Data Allergies/Adverse Reactions: No Known Allergies Allergy (Verified 06/02/18 12:33) Past Medical History - Social History Smoking Status: Former Smoker Chew tobacco use (# tins/day): No Frequency of alcohol use: None Drug Abuse: Cocaine Family History: Reviewed & Not Pertinent Patient has suicidal ideation: No Patient has homicidal ideation: No - Past Medical History Cardiac Medical History: Reports: Hx Hypertension Denies: Hx Coronary Artery Disease, Hx Heart Attack Pulmonary Medical History: Reports: Hx Bronchitis, Hx COPD, Hx Pneumonia Denies: Hx Asthma Neurological Medical History: Denies: Hx Cerebrovascular Accident, Hx Seizures Renal/ Medical History: Denies: Hx Peritoneal Dialysis Malignancy Medical History: Reports Hx Lung Cancer, Reports Hx Prostate Cancer Musculoskeletal Medical History: Reports Hx Arthritis Psychiatric Medical History: Reports: Hx Depression Past Surgical History: Reports: Hx Appendectomy. Denies: Hx Pacemaker - Immunizations Hx Diphtheria, Pertussis, Tetanus Vaccination: Yes Hx Pneumococcal Vaccination: 07/06/12 Review of Systems - Review of Systems Constitutional: Other - fatigue EENT: No symptoms reported Cardiovascular: No symptoms reported Respiratory: No symptoms reported Gastrointestinal: Constipation Genitourinary: No symptoms reported Male Genitourinary: No symptoms reported Musculoskeletal: No symptoms reported Skin: No symptoms reported Hematologic/Lymphatic: No symptoms reported Neurological/Psychological: No symptoms reported Physical Exam - Vital signs Vitals: Temp Pulse Resp BP Pulse Ox 97.5 F 72 14 185/99 H 96 06/02/18 12:46 06/02/18 12:46 06/02/18 12:46 06/02/18 12:46 06/02/18 12:46 - General General appearance: Appears well, Alert - HEENT Head: Normocephalic, Atraumatic - Respiratory Respiratory status: No respiratory distress Chest status: Nontender Breath sounds: Normal - Cardiovascular Rhythm: Regular Heart sounds: Normal auscultation Murmur: No - Abdominal Inspection: Normal Distension: No distension Bowel sounds: Normal Tenderness: Nontender - Extremities General upper extremity: Normal inspection - no edema, normal ROM - Neurological Neuro grossly intact: Yes Cognition: Normal Orientation: AAOx4 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 nursing notes reviewed. 06/02/18 14:55 patient given magnesium citrate for his constipation. labwork today shows no leukocytosis. He was encouraged to contact his PCP for close followup. The PCP has not contacted me and patient is not sure what their name is for me to be able to contact them. Patient is currently feeling well and denies symptoms. Discharged home in stable condition. Laboratory 06/02/18 06/02/18 14:07 14:07 WBC 8.4 RBC 4.86 Hgb 14.4 Hct 42.3 MCV 87 MCH 29.7 MCHC 34.1 RDW 14.9 H Plt Count 208 Seg Neutrophils % 61.3 Lymphocytes % 19.0 Monocytes % 6.3 Eosinophils % 13.0 H Basophils % 0.4 Absolute Neutrophils 5.1 Absolute Lymphocytes 1.6 Absolute Monocytes 0.5 Absolute Eosinophils 1.1 H Absolute Basophils 0.0 Sodium 141.7 Potassium 4.8 Chloride 103 Carbon Dioxide 29 Anion Gap 10 BUN 26 H Creatinine 0.95 Est GFR ( Amer) > 60 Est GFR (Non-Af Amer) > 60 Glucose 80 Calcium 9.5 Total Bilirubin 0.4 Direct Bilirubin 0.2 Neonat Total Bilirubin Not Reportable Neonat Direct Bilirubin Not Reportable Neonat Indirect Bili Not Reportable AST 20 ALT 18 L Alkaline Phosphatase 82 Total Protein 6.7 Albumin 3.7 Chest X-Ray 06/02/18 13:15 IMPRESSION: 1. Interval resolution of the small left pleural effusion since the prior examination dated 07/28/2016. 2. Otherwise, stable appearance to the chest. No acute findings. - Vital Signs Vital signs: Temp Pulse Resp BP Pulse Ox 97.5 F 72 14 185/99 H 96 06/02/18 12:46 06/02/18 12:46 06/02/18 12:46 06/02/18 12:46 06/02/18 12:46 - Laboratory Result Diagrams: 06/02/18 14:07 06/02/18 14:07 Laboratory results interpreted by me: 06/02/18 06/02/18 14:07 14:07 RDW 14.9 H Eosinophils % 13.0 H Absolute Eosinophils 1.1 H BUN 26 H ALT 18 L Discharge - Discharge Clinical Impression: Constipation Qualifiers: Constipation type: other constipation type Qualified Code(s): K59.09 - Other constipation Condition: Stable Disposition: HOME, SELF-CARE Instructions: Constipation ([facility]) Referrals: MARIAA IGNACIO PA-C [Primary Care Provider] - Follow up in 3-5 days
[2018-06-02] MEDS ORDERED: MAGNESIUM CITRATE 296 ML BOTTLE PO ONE (14:27)
[2018-06-02 14:44] LABS: ALANINE AMINOTRANSFERASE 18 U/L (21-72); ALBUMIN 3.7 g/dL (3.5-5.0); ALKALINE PHOSPHATASE 82 U/L (38-126); ANION GAP 10 (5-19); ASPARTATE AMINO TRANSFERASE 20 U/L (17-59); BILIRUBIN,DIRECT 0.2 mg/dL (0.0-0.4); BILIRUBIN,TOTAL 0.4 mg/dL (0.2-1.3); BLOOD UREA NITROGEN 26 mg/dL (7-20); CALCIUM 9.5 mg/dL (8.4-10.2); CARBON DIOXIDE 29 mmol/L (22-30); CHLORIDE 103 mmol/L (98-107); GLUCOSE 80 mg/dL (75-110); POTASSIUM 4.8 mmol/L (3.6-5.0); SODIUM 141.7 mmol/L (137-145); TOTAL PROTEIN 6.7 g/dL (6.3-8.2)
[2018-06-02 15:26] VITALS: BP 185/97
== END 2018-06-02 15:37 | disposition home or self-care (01) ==
LOC: ER 12:30
DX: K59.00 Constipation, unspecified (principal); F14.10 Cocaine abuse, uncomplicated; R53.83 Other fatigue; I10 Essential (primary) hypertension; J44.9 Chronic obstructive pulmonary disease, unspecified; Z85.46 Personal history of malignant neoplasm of prostate; Z85.118 Personal history of other malignant neoplasm of bronchus and lung; Z87.891 Personal history of nicotine dependence
CPT/HCPCS: 99283; 36415; 85025; 80053; 71046; J3490

== ENCOUNTER → 2019-03-21 | Outpatient (CLI) | payer MEDICARE, MEDICAID ==
--- NOTE | 2019-03-21 19:00 | XCELERA REPORT ---
[address] [address] Transthoracic Echocardiogram Report Name: MUNDO MAYORGA Age: 68 yrs Gender: Male : 1950 Patient Status: Outpatient Patient Location: [facility] Study Date: 03/21/2019 11:27 AM Height: 66 in Weight: 150 lb BSA: 1.8 m2 Reason For Study: CHRONIC OBSTRUCIVE PULMONARY DISEASE Ordering Physician: JACINTA RICHARDS Performed By: Eduardo Evans Interpretation Summary Mild pulm hypertension RVSP 34, RAP 3mm Hg. RV borderline enlarged with normal RV function and normal RA, normal IVC. No LVH, LVEF biplane 43% mild systolic dysfunction, with LV diastolic dysfunction stage I. Regional wall motion abnormality conisists of hypokinesis of the anterior wall,and the IVS. Mild LV enlargement.(LVESD 41mm). Nonstenotic calcific aortic valvular disease, with no AR. Mild mitral annular calcification with no MS, and mild MR with mild LA enlargement (M-Mode 43mm). MMode/2D Measurements & Calculations RVDd: 3.7 cm LVIDd: 5.7 cm FS: 25.8 % Ao root diam: IVSd: 0.81 cm LVIDs: 4.2 cm EDV(Teich): 3.0 cm LVPWd: 0.83 cm 156.8 ml Ao root area: ESV(Teich): 78.3 ml 7.2 cm2 LA dimension: EF(Teich): 50.1 % 4.2 cm LVLd ap4: 8.8 cm SV(MOD-sp4): EDV(MOD-sp4): 55.0 ml 121.0 ml LVLs ap4: 7.7 cm ESV(MOD-sp4): 66.0 ml EF(MOD-sp4): 45.5 % Doppler Measurements & Calculations MV E max mg: MV P1/2t max mg: Ao V2 max: LV V1 max P.1 cm/sec 71.7 cm/sec 136.4 cm/sec 2.8 mmHg MV A max mg: MV P1/2t: 64.5 msec Ao max PG: LV V1 max: 102.2 cm/sec MVA(P1/2t): 3.4 cm2 7.4 mmHg 82.9 cm/sec MV E/A: 0.65 MV dec slope: 325.5 cm/sec2 MV dec time: 0.21 sec PA V2 max: PI end-d mg: TR max mg: MV P1/2t-pr_phl: 96.7 cm/sec 126.2 cm/sec 300.0 cm/sec 64.5 msec PA max P.7 mmHg TR max P.0 mmHg Left Ventricle The left ventricle is normal in size, thickness and function. There is normal left ventricular wall thickness. LV EF is 43%. Doppler measurements suggest impaired left ventricular relaxation, which is associated with grade I/IV or mild diastolic dysfunction. There is septal wall moderate hypokinesis. There is anterior wall moderate hypokinesis. There is no thrombus. Right Ventricle The right ventricle is borderline dilated. The right ventricular systolic function is normal. Atria The right atrium is normal in size. The left atrial size is normal. The interatrial septum is intact with no evidence for an atrial septal defect. Mitral Valve The mitral valve leaflets are sclerotic and show some degree of functional abnormality. The mitral valve leaflets appear thickened, but open well. There is no evidence of mitral valve prolapse. There is no vegetation seen on the mitral valve. There is no mitral valve stenosis. There is a mild amount of mitral regurgitation. Aortic Valve The aortic valve is trileaflet. The aortic valve opens well. There is no aortic valvular vegetation. There is no aortic valve stenosis. No aortic regurgitation is present. Tricuspid Valve The tricuspid valve is not well visualized, but is grossly normal. There is no tricuspid valve prolapse. There is no tricuspid stenosis. There is a mild amount of tricuspid regurgitation. RSVP is equal to 34. Pulmonic Valve The pulmonic valve is not well visualized. There is a trace or physiologic amount of pulmonic regurgitation. Great Vessels The aortic root is normal size. There is aortic root sclerosis/calcification. Effusions There is no pericardial effusion. I WMSI = 1.50 % Normal = 50 Segments Size X - Cannot 2 - 4 - 1-2 small Interpret 1 - Normal Hypokinetic 3 - AkineticDyskinetic 3-5 moderate 5 - 6-14 large Aneurysmal 15-16 diffuse : JACINTA RICHARDS Andre
== END ==
LOC: SP 11:10
PROVIDERS: ATTEND Registered Nurse
DX: J44.9 Chronic obstructive pulmonary disease, unspecified (principal); R06.00 Dyspnea, unspecified
CPT/HCPCS: 93306

== ENCOUNTER 2019-07-20 11:19 | Emergency (ER) | payer MEDICARE, MEDICAID ==
[2019-07-20] MEDS ORDERED: IPRATROPIUM/ALBUTEROL 0.5-2.5 MG/3 ML AMPUL NEB ONE (11:35)
[2019-07-20] MEDS ORDERED: METHYLPREDNISOLONE INJ 125 MG/2 ML SDV IM ONE ×2 (11:35→15:00)
--- NOTE | 2019-07-20 11:37 | ER Document Report ---
ED Medical Screen (RME) - General Chief Complaint: Cold Symptoms Stated Complaint: RUNNY NOSE/CONGESTION Time Seen by Provider: 07/20/19 11:30 Primary Care Provider: JACINTA RICHARDS NP [Primary Care Provider] - Follow up as needed Notes: Patient is a 68-year-old male who presents emergency department with a chief complaint of a cough, congestion, and runny nose. He has had symptoms for the past week. Denies any fever. 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 Exam: Coarse/wheezy breath sounds bilaterally. Cough noted. I have greeted and performed a rapid initial assessment of this patient. A comprehensive ED assessment and evaluation of the patient, analysis of test results and completion of medical decision making process will be conducted by an additional ED providers. TRAVEL OUTSIDE OF THE [place] IN LAST 30 DAYS: No - Related Data Allergies/Adverse Reactions: No Known Allergies Allergy (Verified 07/20/19 11:30) Past Medical History - Social History Drug Abuse: Methamphetamine - Past Medical History Cardiac Medical History: Reports: Hx Hypertension Denies: Hx Coronary Artery Disease, Hx Heart Attack Pulmonary Medical History: Reports: Hx Bronchitis, Hx COPD, Hx Pneumonia Denies: Hx Asthma Neurological Medical History: Denies: Hx Cerebrovascular Accident, Hx Seizures Renal/ Medical History: Denies: Hx Peritoneal Dialysis Malignancy Medical History: Reports Hx Lung Cancer, Reports Hx Prostate Cancer Musculoskeltal Medical History: Reports Hx Arthritis Psychiatric Medical History: Reports: Hx Depression Past Surgical History: Reports: Hx Appendectomy. Denies: Hx Pacemaker - Immunizations Hx Diphtheria, Pertussis, Tetanus Vaccination: Yes Physical Exam - Vital signs Vitals: Temp Pulse Resp BP Pulse Ox 97.4 F 65 16 187/99 H 100 07/20/19 11:07/20/19 11:07/20/19 11:07/20/19 11:07/20/19 11:29 Course - Vital Signs Vital signs: Temp Pulse Resp BP Pulse Ox 97.4 F 65 16 187/99 H 100 07/20/19 11:29 07/20/19 11:29 07/20/19 11:29 07/20/19 11:29 07/20/19 11:29 Doctor's Discharge - Discharge Referrals: JACINTA RICHARDS CLINICAL RESEARCH DIRECTOR [Primary Care Provider] - Follow up as needed
[2019-07-20 12:04] LABS: ABSOLUTE EOSINOPHILS # (AUTO) 0.8 10^3/uL (0.0-0.6); ABSOLUTE LYMPHOCYTES (AUTO) 1.5 10^3/uL (0.5-4.7); ABSOLUTE MONOCYTES (AUTO) 0.5 10^3/uL (0.1-1.4); ABSOLUTE NEUT (AUTO) 7.6 10^3/uL (1.7-8.2); BASOPHILS % (AUTO) 0.5 % (0-2); EOSINOPHILS % (AUTO) 7.3 % (0-6); HEMATOCRIT 44.6 % (37.9-51.0); HEMOGLOBIN 14.9 g/dL (13.5-17.0); LYMPHOCYTES % (AUTO) 14.5 % (13-45); MEAN CORPUSCULAR HEMOGLOBIN 29.6 pg (27.0-33.4); MEAN CORPUSCULAR HGB CONC 33.4 g/dL (32.0-36.0); MEAN CORPUSCULAR VOLUME 89 fl (80-97); MONOCYTES % (AUTO) 5.2 % (3-13); PLATELET COUNT 188 10^3/uL (150-450); RED BLOOD COUNT 5.03 10^6/uL (4.35-5.55); RED CELL DISTRIBUTION WIDTH 14.1 % (11.5-14.0); SEGMENTED NEUTROPHILS % (AUTO) 72.5 % (42-78); TOTAL CELLS COUNTED % (AUTO) 100 %; WHITE BLOOD COUNT 10.4 10^3/uL (4.0-10.5)
--- NOTE | 2019-07-20 12:04 | RADIOLOGY REPORT (SQ) ---
EXAM DESCRIPTION: CHEST 2 VIEWS COMPLETED DATE/TIME: 07/20/2019 11:56 am REASON FOR STUDY: cough COMPARISON: 06/02/2018 EXAM PARAMETERS: NUMBER OF VIEWS: two views TECHNIQUE: Digital Frontal and Lateral radiographic views of the chest acquired. RADIATION DOSE: NA LIMITATIONS: none FINDINGS: LUNGS AND PLEURA: No opacities, masses or pneumothorax. No pleural effusion. MEDIASTINUM AND HILAR STRUCTURES: No masses or contour abnormalities. HEART AND VASCULAR STRUCTURES: Heart normal size. No evidence for failure. BONES: No acute findings. HARDWARE: None in the chest. OTHER: No other significant finding. IMPRESSION: NO ACUTE RADIOGRAPHIC FINDING IN THE CHEST. TECHNICAL DOCUMENTATION: JOB ID: [id number] [employer]- All Rights Reserved Reading location - IP/workstation name: [email or web address]
[2019-07-20 12:18] LABS: A TYPE INFLUENZA AG NEGATIVE (NEGATIVE); B INFLUENZA AG NEGATIVE (NEGATIVE)
[2019-07-20 12:28] LABS: ALBUMIN 4.2 g/dL (3.5-5.0); ALKALINE PHOSPHATASE 91 U/L (38-126); ANION GAP 8 (5-19); ASPARTATE AMINO TRANSFERASE 19 U/L (17-59); BILIRUBIN,DIRECT 0.1 mg/dL (0.0-0.4); BILIRUBIN,TOTAL 0.8 mg/dL (0.2-1.3); BLOOD UREA NITROGEN 22 mg/dL (7-20); CALCIUM 9.7 mg/dL (8.4-10.2); CARBON DIOXIDE 29 mmol/L (22-30); CHLORIDE 102 mmol/L (98-107); GLUCOSE 184 mg/dL (75-110); POTASSIUM 4.7 mmol/L (3.6-5.0); TOTAL PROTEIN 7.5 g/dL (6.3-8.2)
[2019-07-20] MEDS ORDERED: ALBUTEROL SULFATE HFA (90 MCG/PUFF) 8 GM MDI (1 MDI/ER DISP) IH PRN (14:40)
[2019-07-20 15:06] VITALS: BP 191/110
--- NOTE | 2019-07-20 15:28 | ER Document Report ---
ED General - General Chief Complaint: Cold Symptoms Stated Complaint: RUNNY NOSE/CONGESTION Time Seen by Provider: 07/20/19 11:30 Primary Care Provider: JACINTA RICHARDS, FLEX O WRITER OPERATOR [Primary Care Provider] - Follow up as needed TRAVEL OUTSIDE OF THE [place] IN LAST 30 DAYS: No - HPI Notes: Patient is a 68-year-old male who comes in the emergency department for evaluation of cough and congestion. He states his symptoms have been present for about 3 weeks. He states they have all been improving over the last 10 days. He just came in here for further evaluation. No fevers or chills. No nausea or vomiting. Eating and drinking normally. He denies any shortness of breath. Normal bowel movements, no cuts or rashes. - Related Data Allergies/Adverse Reactions: No Known Allergies Allergy (Verified 07/20/19 11:30) Home Medications: None Past Medical History - General Information source: Patient - Social History Smoking Status: Current Every Day Smoker Drug Abuse: Methamphetamine Family History: Reviewed & Not Pertinent Patient has suicidal ideation: No Patient has homicidal ideation: No - Past Medical History Cardiac Medical History: Reports: Hx Hypertension Denies: Hx Coronary Artery Disease, Hx Heart Attack Pulmonary Medical History: Reports: Hx Bronchitis, Hx COPD, Hx Pneumonia Denies: Hx Asthma Neurological Medical History: Denies: Hx Cerebrovascular Accident, Hx Seizures Renal/ Medical History: Denies: Hx Peritoneal Dialysis Malignancy Medical History: Reports Hx Lung Cancer, Reports Hx Prostate Cancer Musculoskeletal Medical History: Reports Hx Arthritis Psychiatric Medical History: Reports: Hx Depression Past Surgical History: Reports: Hx Appendectomy. Denies: Hx Pacemaker - Immunizations Hx Diphtheria, Pertussis, Tetanus Vaccination: Yes Hx Pneumococcal Vaccination: 07/06/12 Review of Systems - Review of Systems Constitutional: No symptoms reported EENT: No symptoms reported Cardiovascular: No symptoms reported Respiratory: No symptoms reported Gastrointestinal: See HPI Genitourinary: No symptoms reported Musculoskeletal: No symptoms reported Skin: No symptoms reported Neurological/Psychological: No symptoms reported Physical Exam - Vital signs Vitals: Temp Pulse Resp BP Pulse Ox 97.4 F 65 16 187/99 H 100 07/20/19 11:29 07/20/19 11:29 07/20/19 11:29 07/20/19 11:29 07/20/19 11:29 - Notes Notes: This is a disheveled appearing 68-year-old male who appears her stated age in no acute distress. Vital signs reviewed, please refer to chart. Head is normocephalic, atraumatic. Pupils equal round, reactive to light. Neck is supple without meningismus. Heart is regular rate and rhythm. Lungs reveal diminished breath sounds with occasional wheeze expiratory. No increased work of breathing.. Abdomen is soft, nontender, normoactive bowel sounds throughout. Extremities without cyanosis, clubbing. Posterior calves are nontender. Peripheral pulses are equal. Skin is warm and dry. Patient is awake, alert, neurological exam is nonfocal. Course - Re-evaluation Re-evalutation: 07/20/19 15:31 Patient presents emergency department for evaluation. On arrival he is found to be hypertensive. He is not on medications for high blood pressure as he has been in the past. He was counseled that he should consider doing that. His laboratory investigations are otherwise largely unremarkable. Chest x-ray failed to reveal any signs of infiltrate. He is 100% on room air. The patient was given steroids and albuterol here. I will treat him as a COPD exacerbation have him follow-up with primary care. He is to return to the ED with worsening or new concerning symptoms of any sort. - Vital Signs Vital signs: Temp Pulse Resp BP Pulse Ox 97.5 F 55 L 16 191/110 H 98 07/20/19 15:06 07/20/19 15:06 07/20/19 15:06 07/20/19 15:06 07/20/19 15:06 - Laboratory Result Diagrams: 07/20/19 11:45 07/20/19 11:45 Laboratory results interpreted by me: 07/20/19 07/20/19 11:45 11:45 RDW 14.1 H Eos % (Auto) 7.3 H Absolute Eos (auto) 0.8 H BUN 22 H Glucose 184 H Discharge - Discharge Clinical Impression: COPD with acute exacerbation Condition: Stable Disposition: HOME, SELF-CARE Instructions: Chronic Obstructive Lung Disease ([facility]) Additional Instructions: Take medications as prescribed. Use albuterol inhaler, 1 to 2 puffs every 4-6 hours as needed for shortness of breath. Follow-up with primary care next week. Please try to quit smoking. Return to the ED with worsening or new concerning symptoms of any sort. Referrals: MARSHBURN,JACINTA D, FLEX O WRITER OPERATOR [Primary Care Provider] - Follow up as needed
== END 2019-07-20 15:49 | disposition home or self-care (01) ==
LOC: ER 11:19
DX: J44.1 Chronic obstructive pulmonary disease with (acute) exacerbation (principal); R68.89 Other general symptoms and signs; F17.200 Nicotine dependence, unspecified, uncomplicated; I10 Essential (primary) hypertension; Z85.118 Personal history of other malignant neoplasm of bronchus and lung
CPT/HCPCS: 94640; 99284; 96374; 36415; 85025; 80053; 87804; 71046; J2930; A9270; J3490